=== PATIENT | female | born 1980 | race Caucasian/White ===

== ENCOUNTER 2018-10-23 11:30 | Emergency (ER) | payer OTHER ==
--- NOTE | 2018-10-23 12:33 | ED Physician Documentation ---
History of Present Illness - Stated complaint Stated Complaint: NEEDLE STICK - Chief complaint Chief Complaint: General - History obtained from History obtained from: Patient - History of Present Illness Timing: Today (She was removing a needle from a Port-A-[employer] and stuck herself on the left middle finger. She is a nurse here.) Review of Systems Constitutional: reports: Reviewed and negative Cardiac: reports: Reviewed and negative PD PAST MEDICAL HISTORY - Past Medical History Past Medical History: No - Past Surgical History Past Surgical History: No - Present Medications Home Medications: Ambulatory Orders Medication Instructions Recorded Confirmed Dolutegravir Sodium [Tivicay] 50 mg PO DAILY #30 tablet 10/23/18 Emtricitabine/Tenofovir [Truvada 1 each PO DAILY #30 tablet 10/23/18 200 mg-300 mg Tablet] - Allergies Allergies/Adverse Reactions: Allergies Allergy/AdvReac Type Severity Reaction Status Date / Time No Known Drug Allergies Allergy Verified 10/23/18 11:46 - Social History Does the pt smoke?: No Smoking Status: Never smoker PD ED PE NORMAL - Vitals Vital signs reviewed: Yes - General General: Alert and oriented X 3, No acute distress - Extremities Extremities: Other (Visible puncture wound left middle finger) - Neuro Neuro: Alert and oriented X 3, Normal speech Results - Vitals Vitals: Vital Signs - 24 hr 10/23/18 11:44 Temperature 36.4 C L Heart Rate 62 Respiratory 16 Rate Blood Pressure 145/77 H O2 Saturation 100 Oxygen O2 Source Room air PD MEDICAL DECISION MAKING - ED course ED course: 38-year-old woman with needlestick injury. Per her description the source patient is low risk for viral illnesses. We discussed HIV postexposure prophylaxis. She would like to take the prescription and decide whether or not to start it based on subsequent source patient testing. Departure - Departure Disposition: 01 Home, Self Care Clinical Impression: Needlestick injury accident Condition: Good Record reviewed to determine appropriate education?: Yes Instructions: ED Body Fluid Exp HC Worker Prescriptions: Dolutegravir Sodium [Tivicay] 50 mg PO DAILY #30 tablet Emtricitabine/Tenofovir [Truvada 200 mg-300 mg Tablet] 1 each PO DAILY #30 tablet Comments: As discussed, you can wait to decide whether or not you take HIV postexposure prophylaxis based on the results of source patient testing. Or you can started immediately pending those results. Follow-up with your physician for repeat hepatitis and HIV testing in 2 months and 6 months.
[2018-10-23 13:13] VITALS: BP 127/75
[2018-10-24 11:57] LABS: HEPATITIS C ANTIBODY NON-REACTIVE (NON-REACTIVE)
[2018-10-24 18:06] LABS: HIV AG/AB 4TH GEN NON-REACTIVE (NON-REACTIVE)
== END 2018-10-23 13:16 | disposition home or self-care (01) ==
LOC: ED 11:30
DX: S61.233A Puncture wound without foreign body of left middle finger without damage to nail, initial encounter (principal); Z77.21 Contact with and (suspected) exposure to potentially hazardous body fluids; W46.1XXA Contact with contaminated hypodermic needle, initial encounter; Y93.F9 Activity, other caregiving; Y92.239 Unspecified place in hospital as the place of occurrence of the external cause; Y99.0 Civilian activity done for income or pay
CPT/HCPCS: 1040M; 36415; 86317; 86803; 87389; 99282; 99283